=== PATIENT | female | born 1965 | race Caucasian/White ===

== ENCOUNTER → 2016-08-22 | Outpatient (CLI) | payer OTHER ==
[~2016-08-22] MED LIST: ADVAIR 250/28 DISKU1 IH; ALBUTEROL2.5 MG/3 M IH; ALPRAZOLAM XR1 MG PO; AMBIEN CR12.5 MG PO; AMBIEN12.5 MG PO; BUSPIRONE HYDRO10 MG PO; LISINOPRIL10 MG PO; LISINOPRIL5 MG PO; PREDNISONE10 M1 PO; PRISTIQ100 MG PO; PRISTIQ50 M1 PO; PROPRANOLOL PO; TYLENOL W CODEIN1 ML PO; XANAX0.5 MG PO; ZITHROMAX500 M2 PO; [UNRECOGNIZED DRUG - OTHER] IH
== END ==
LOC: LAB 13:08
DX: R55 Syncope and collapse (principal); R00.1 Bradycardia, unspecified; F51.02 Adjustment insomnia
CPT/HCPCS: Q9967

== ENCOUNTER → 2017-01-08 | Outpatient (REF) ==
[2016-05-15 09:34] VITALS: BP 170/89
== END ==
LOC: LAB 07:14
DX: Z53.9 Procedure and treatment not carried out, unspecified reason (principal)

== ENCOUNTER → 2018-04-23 | Outpatient (CLI) | payer BC ==
[~2018-04-23] VITALS: Ht 160 cm; Wt 46.4 kg
[~2018-04-23] MED LIST changes: +ZOLPIDEM TART12.5 MG PO
[2018-04-23 12:37] VITALS: BP 137/85
[2018-04-23 13:18] LABS: EOS # 0.4 (0.04-0.40); HEMATOCRIT 43.2 % (37.0-47.0); HEMOGLOBIN 14.5 g/dL (12.5-16.0); LYMPH# 1.9 (1.50-4.00); MEAN CELL VOLUME 92 fl (78-100); MEAN CORPUSCULAR HEMOGLOBIN 31 pg (27-31); MEAN CORPUSCULAR HGB CONC 34 g/dL (33-37); MEAN PLATELET VOLUME 9.3 fl (7.4-10.4); MONO # 1.1 (0.20-0.80); PLATELET COUNT 287 K/mm3 (130-400); RED BLOOD COUNT 4.68 M/mm3 (4.10-5.30); WHITE BLOOD COUNT 10.5 K/mm3 (4.8-10.8)
[2018-04-23 13:30] LABS: ALBUMIN 4.1 g/dL (3.5-5.0); CALCIUM 9.9 mg/dL (8.4-10.2); POTASSIUM 4.3 mmol/L (3.6-5.0); TOTAL BILIRUBIN 0.8 mg/dL (0.2-1.3); TOTAL PROTEIN 7.4 g/dL (6.3-8.2)
[2018-04-23 13:53] LABS: URINE APPEARANCE CLEAR; URINE BILIRUBIN NEGATIVE (NEGATIVE); URINE BLOOD NEGATIVE (NEGATIVE); URINE COLOR YELLOW; URINE GLUCOSE NEGATIVE (NEGATIVE); URINE KETONE TR (NEGATIVE); URINE LEUKOCYTE ESTERASE NEGATIVE (NEGATIVE); URINE MUCUS PRESENT (NOT PRESENT); URINE NITRATE NEGATIVE (NEGATIVE); URINE PROTEIN(semi-quant) NEGATIVE (NEGATIVE); URINE UROBILINOGEN NORMAL (NORMAL); URINE WBC 0-1 /hpf (0-3)
[2018-04-23 13:59] VITALS: BP 137/79
== END ==
LOC: AMSURD 12:14
PROVIDERS: Family Medicine
DX: R10.9 Unspecified abdominal pain (principal); G47.00 Insomnia, unspecified; R53.83 Other fatigue; I10 Essential (primary) hypertension; F43.20 Adjustment disorder, unspecified; F41.8 Other specified anxiety disorders
CPT/HCPCS: J7030

== ENCOUNTER → 2018-04-24 | Outpatient (CLI) | payer BC ==
[2018-04-23 13:59] VITALS: BP 137/79
== END ==
LOC: RAD 14:15
DX: M47.816 Spondylosis without myelopathy or radiculopathy, lumbar region (principal); M51.36 Other intervertebral disc degeneration, lumbar region

== ENCOUNTER → 2019-05-10 | Outpatient (CLI) | payer BC ==
[~2019-05-10] VITALS: Ht 160 cm; Wt 50.5 kg
[~2019-05-10] MED LIST changes: +METOPROLOL SUCC25 M1
[2019-05-10 14:35] VITALS: BP 116/77
[2019-05-10 15:58] LABS: HEMATOCRIT 44.1 % (37.0-47.0); HEMOGLOBIN 14.5 g/dL (12.5-16.0); MEAN PLATELET VOLUME 9.2 fl (7.4-10.4); RED BLOOD COUNT 4.66 M/mm3 (4.10-5.30); RED CELL DISTRIBUTION WIDTH 12.7 % (11.5-14.5); WHITE BLOOD COUNT 6.9 K/mm3 (4.8-10.8)
[2019-05-10 16:14] LABS: POTASSIUM 4.8 mmol/L (3.5-5.1)
[2019-05-10 16:15] LABS: CALCIUM 10.2 mg/dL (8.3-10.5)
== END ==
LOC: AMSURD 14:27 → LAB 14:27
PROVIDERS: Family Medicine
DX: I10 Essential (primary) hypertension (principal); G25.0 Essential tremor

== ENCOUNTER → 2019-05-12 | Outpatient (CLI) | payer BC ==
[~2019-05-12] VITALS: Ht 160 cm; Wt 50.5 kg
[2019-05-12 18:50] VITALS: BP 107/73
== END ==
LOC: AMSURD 18:34
DX: I10 Essential (primary) hypertension (principal); G25.0 Essential tremor

== ENCOUNTER → 2020-01-04 | Outpatient (CLI) | payer OTHER ==
[2019-05-12 18:50] VITALS: BP 107/73
== END ==
LOC: LAB 01-03 14:01
DX: Z20.828 Contact with and (suspected) exposure to other viral communicable diseases (principal)

== ENCOUNTER → 2020-06-26 | Outpatient (CLI) | payer BC ==
[2019-05-12 18:50] VITALS: BP 107/73
[2020-06-26 14:19] LABS: HEMATOCRIT 45.9 % (37.0-47.0); HEMOGLOBIN 15.1 g/dL (12.5-16.0); MEAN PLATELET VOLUME 9.2 fl (7.4-10.4); RED BLOOD COUNT 4.9 M/mm3 (4.10-5.30); RED CELL DISTRIBUTION WIDTH 12.9 % (11.5-14.5); WHITE BLOOD COUNT 7.2 K/mm3 (4.8-10.8)
[2020-06-26 14:30] LABS: ALBUMIN 4.3 g/dL (3.5-5.0); POTASSIUM 4.5 mmol/L (3.5-5.1)
[2020-06-26 14:31] LABS: CALCIUM 9.7 mg/dL (8.3-10.5)
[2020-06-26 14:32] LABS: TOTAL PROTEIN 7.2 g/dL (6.4-8.3)
[2020-06-26 14:34] LABS: TOTAL BILIRUBIN 0.4 mg/dL (0.2-1.2)
== END ==
LOC: LAB 13:59
PROVIDERS: Family Medicine
DX: R55 Syncope and collapse (principal)

== ENCOUNTER → 2021-09-13 | Outpatient (CLI) | payer BC | LOC: LAB 10:24 | DX: Z20.822 Contact with and (suspected) exposure to COVID-19 (principal) ==

== ENCOUNTER 2022-09-20 07:31 | Emergency (ER) | payer BC ==
[~2022-09-20] VITALS: Ht 160 cm; Wt 50.0 kg
[~2022-09-20 07:31] MED LIST changes: -METOPROLOL SUCC25 M1; +METOPROLOL SUCC25 M1 PO
[2022-09-20] MEDS ORDERED: WELLBUTRIN PO (07:38)
[2022-09-20] MEDS ORDERED: XANEX PO (07:40)
[2022-09-20 08:11] LABS: BASO # 0.05 K/mm3 (0.02-0.10); EOS % 2.4 % (1.0-5.0); HEMATOCRIT 43.7 % (37.0-47.0); HEMOGLOBIN 14.5 g/dL (12.5-16.0); LYMPH# 2.32 K/mm3 (1.50-4.00); MEAN CELL VOLUME 98 fl (78-100); MEAN CORPUSCULAR HEMOGLOBIN 33 pg (27-31); MEAN CORPUSCULAR HGB CONC 33 g/dL (33-37); MEAN PLATELET VOLUME 9.4 fl (7.4-10.4); MONO # 0.84 K/mm3 (0.20-0.80); NEU # 5.08 K/mm3 (1.40-6.50); PLATELET COUNT 293 K/mm3 (130-400); RED BLOOD COUNT 4.46 M/mm3 (4.10-5.30); RED CELL DISTRIBUTION WIDTH 12.7 % (11.5-14.5); WHITE BLOOD COUNT 8.5 K/mm3 (4.8-10.8)
[2022-09-20 08:15] LABS: ALBUMIN 4.4 g/dL (3.5-5.0); POTASSIUM 3.8 mmol/L (3.5-5.1); SODIUM 141 mmol/L (136-145)
[2022-09-20 08:17] LABS: CALCIUM 10.7 mg/dL (8.3-10.5)
[2022-09-20 08:18] LABS: GLUCOSE 106 mg/dL (65-105); TOTAL PROTEIN 8.4 g/dL (6.4-8.3)
[2022-09-20 08:19] LABS: CARBON DIOXIDE 25 mmol/L (22-29)
[2022-09-20 08:20] LABS: TOTAL BILIRUBIN 0.2 mg/dL (0.2-1.2)
[2022-09-20 08:23] LABS: AST-SGOT 21 U/L (5-34)
[2022-09-20 08:24] LABS: ALT/SGPT 14 U/L (0-55)
[2022-09-20 08:25] LABS: LIPASE 44 U/L (8-78)
[2022-09-20 08:37] LABS: TROPONIN-I < 0.030 ng/mL (<0.030)
[2022-09-20 09:00] VITALS: BP 165/96
== END 2022-09-20 09:10 | disposition home or self-care (01) ==
LOC: ED 07:31
PROVIDERS: Family Medicine
DX: R07.89 Other chest pain (principal)

== ENCOUNTER → 2023-08-06 | Outpatient (CLI) | payer BC ==
[~2023-08-06] MED LIST changes: +WELLBUTRIN PO; +XANEX PO
[2023-08-06 16:08] LABS: CALCIUM 10.1 mg/dL (8.3-10.5)
== END ==
LOC: LAB 15:35
PROVIDERS: Family Medicine
DX: I10 Essential (primary) hypertension (principal); M25.562 Pain in left knee

== ENCOUNTER → 2024-04-27 | Outpatient (CLI) | payer BC | LOC: RAD 13:09 | DX: R50.9 Fever, unspecified (principal) ==

== ENCOUNTER → 2024-06-09 | Outpatient (CLI) | payer BC ==
[~2024-06-09] MED LIST changes: +BUSPAR 15MG TAB15 MG PO; +CYCLOBENZ5 MG PO; +DESYREL50 MG PO; +KETOROLAC10 MG PO; +PROPRANOLOL HCL60 M3 PO; +REMERON15 MG PO; +ROSUVASTATIN CA20 MG PO; +SERTRALINE50 MG PO
[2024-06-09 12:07] LABS: CALCIUM 10.6 mg/dL (8.3-10.5)
[2024-06-09 23:40] LABS: CREATININE OTHER SOURCE 36 mg/dL (63-166)
== END ==
LOC: LAB 11:44
PROVIDERS: Family Medicine
DX: Z13.220 Encounter for screening for lipoid disorders (principal); I10 Essential (primary) hypertension; F41.1 Generalized anxiety disorder

== ENCOUNTER 2024-06-24 18:33 | Emergency (ER) | payer BC ==
[~2024-06-24] VITALS: Ht 160 cm; Wt 61.4 kg
[~2024-06-24 18:33] MED LIST changes: -BUSPAR 15MG TAB15 MG PO; -CYCLOBENZ5 MG PO; -DESYREL50 MG PO; -KETOROLAC10 MG PO; -PROPRANOLOL HCL60 M3 PO; -REMERON15 MG PO; -ROSUVASTATIN CA20 MG PO; -SERTRALINE50 MG PO
[2024-06-24] MEDS ORDERED: PROPRANOLOL HCL60 M3 PO (18:39)
[2024-06-24] MEDS ORDERED: SERTRALINE50 MG PO (18:39)
[2024-06-24] MEDS ORDERED: ROSUVASTATIN CA20 MG PO (18:39)
[2024-06-24 18:40] VITALS: BP 143/90
[2024-06-24] MEDS ORDERED: DESYREL50 MG PO (18:40)
[2024-06-24] MEDS ORDERED: BUSPAR 15MG TAB15 MG PO (18:40)
[2024-06-24] MEDS ORDERED: LISINOPRIL10 MG PO (18:40)
[2024-06-24] MEDS ORDERED: REMERON15 MG PO (18:40)
[2024-06-24] MEDS ORDERED: CYCLOBENZ5 MG PO (19:28)
[2024-06-24] MEDS ORDERED: KETOROLAC10 MG PO (19:28)
== END 2024-06-24 19:47 | disposition home or self-care (01) ==
LOC: ED 18:33
DX: S06.0X0A Concussion without loss of consciousness, initial encounter (principal); F17.200 Nicotine dependence, unspecified, uncomplicated; W01.10XA Fall on same level from slipping, tripping and stumbling with subsequent striking against unspecified object, initial encounter; Y92.009 Unspecified place in unspecified non-institutional (private) residence as the place of occurrence of the external cause

== ENCOUNTER → 2024-07-19 | Outpatient (CLI) | payer BC ==
[~2024-07-19] MED LIST changes: +BUSPAR 15MG TAB15 MG PO; +CYCLOBENZ5 MG PO; +DESYREL50 MG PO; +KETOROLAC10 MG PO; +PROPRANOLOL HCL60 M3 PO; +REMERON15 MG PO; +ROSUVASTATIN CA20 MG PO; +SERTRALINE50 MG PO
== END ==
LOC: MAMMO 10:50
DX: Z12.31 Encounter for screening mammogram for malignant neoplasm of breast (principal)

== ENCOUNTER → 2024-08-16 | Day surgery (SDC) | payer BC | LOC: MSO 07-26 08:39 | DX: Z12.11 Encounter for screening for malignant neoplasm of colon (principal); Z87.891 Personal history of nicotine dependence | CPT/HCPCS: 00812; J2704; J7120 ==